=== PATIENT | female | born 1995 ===

== ENCOUNTER 2019-12-31 17:01 | Emergency (ER) | payer BC ==
[2019-12-31] MEDS: SUMAtriptan 6 MG/0.5 ML SDV SUBCUT ONE (17:35)
--- NOTE | 2019-12-31 17:35 | EDM.PDOC ---
ED HPI GENERAL MEDICAL PROBLEM - General Chief Complaint: Headache Stated Complaint: migraine Time Seen by Provider: 12/31/19 17:20 Source of Information: Reports: Patient History Limitations: Reports: No Limitations - History of Present Illness INITIAL COMMENTS - FREE TEXT/NARRATIVE: She presents to the emergency department complaining of a severe headache. The headache started yesterday around noon. Headache localizes to the right side. Constant severe pain. Positive phono and photophobia. Positive nausea but no vomiting. She did have some mild visual aura initially no injury that she is aware of. She states that she gets headaches about every 3 weeks. Usually they will resolve with Excedrin, but she has taken it 5 or 6 times since the headache started without improvement. She denies any other recent illness. No fever or chills. No nasal congestion or sore throat. No cough or shortness of breath. No chest pain or tightness. No abdominal pain. Right Headache Pain Score (Numeric/FACES): 8 - Related Data Allergies Allergy/AdvReac Type Severity Reaction Status Date / Time No Known Allergies Allergy Verified 12/31/19 17:02 Home Meds: Home Meds Acetaminophen/Caffeine [Excedrin Tension Headache Cplt] 1 tab PO Q6HR PRN [History] Social & Family History - Tobacco Use Smoking Status *Q: Never Smoker Second Hand Smoke Exposure: No - Caffeine Use Caffeine Use: Reports: Coffee, Soda Other Caffeine Use: daily - Recreational Drug Use Recreational Drug Use: No ED ROS GENERAL - Review of Systems Review Of Systems: See Below Constitutional: Denies: Fever, Chills HEENT: Denies: Ear Pain, Eye Pain, Hearing Loss, Nosebleed, Sinus Problem, Throat Pain Respiratory: Denies: Shortness of Breath, Cough Cardiovascular: Denies: Chest Pain, Lightheadedness, Palpitations Endocrine: Denies: Fatigue GI/Abdominal: Reports: Nausea. Denies: Abdominal Pain, Constipation, Diarrhea, Vomiting : Denies: Dysuria, Frequency, Urgency Musculoskeletal: Denies: Neck Pain Skin: Denies: Rash Neurological: Reports: Headache. Denies: Confusion, Dizziness, Numbness, Tingling, Trouble Speaking Psychiatric: Denies: Anxiety ED EXAM, GENERAL - Physical Exam Exam: See Below Exam Limited By: No Limitations General Appearance: Alert, WD/WN, Mild Distress Eye Exam: Bilateral Eye: EOMI, Normal Inspection, PERRL Ears: Normal External Exam, Normal Canal, Hearing Grossly Normal, Normal TMs Nose: Normal Inspection, Normal Mucosa, No Blood Throat/Mouth: Normal Lips, Normal Gums, Normal Oropharynx Head: Atraumatic, Normocephalic Neck: Non-Tender. No: Lymphadenopathy (L), Lymphadenopathy (R) Respiratory/Chest: No Respiratory Distress, Lungs Clear, Normal Breath Sounds Cardiovascular: Regular Rate, Rhythm, No Murmur GI/Abdominal: Normal Bowel Sounds, Soft, Non-Tender Neurological: Alert, Oriented, CN II-XII Intact Skin Exam: Warm, Dry Course - Vital Signs Text/Narrative:: Patient was given Imitrex 6 mg subQ With complete relief of her headache. She tolerated the medication without any difficulty. Last Recorded V/S: Last Vital Signs Temp 37.4 C 12/31/19 17:04 Pulse 95 12/31/19 17:04 Resp 17 12/31/19 17:04 BP 117/80 12/31/19 17:04 Pulse Ox 98 12/31/19 17:04 Departure - Departure Time of Disposition: 17:59 Disposition: Home, Self-Care 01 Condition: Good Clinical Impression: Migraine - Discharge Information *PRESCRIPTION DRUG MONITORING PROGRAM REVIEWED*: No *COPY OF PRESCRIPTION DRUG MONITORING REPORT IN PATIENT RUMA: No Additional Instructions: Follow-up with primary provider. Consider trial of oral Imitrex for future headaches. Return to the emergency department as needed. Sepsis Event Note - Evaluation Sepsis Screening Result: No Definite Risk - Focused Exam Vital Signs: Vital Signs Temp Pulse Resp BP Pulse Ox 12/31/19 17:04 37.4 C 95 17 117/80 98 Date Exam was Performed: 12/31/19 Time Exam was Performed: 17:30 - Problem List Review Problem List Initiated/Reviewed/Updated: Yes - Assessment/Plan Plan: Discussed findings and treatment options. Follow-up with primary provider. Consider trial of oral Imitrex for future headaches. Return to the emergency department as needed.
== END 2019-12-31 18:13 | disposition home or self-care (01) ==
LOC: LL.ED 17:01
DX: G43.909 Migraine, unspecified, not intractable, without status migrainosus (principal)
CPT/HCPCS: 96372; 99283; J3030

== ENCOUNTER 2020-06-21 20:12 | Emergency (ER) | payer BC, OTHER ==
[2020-06-21] MEDS ORDERED: Famotidine 20 MG/2 ML SDV IVPUSH ONE (20:26)
[2020-06-21] MEDS ORDERED: Ticagrelor 90 MG Tab PO ONE (20:26)
[2020-06-21] MEDS ORDERED: Aspirin 81 MG Tab.Chew CHEW ONE (20:26)
[2020-06-21] MEDS ORDERED: Sodium Chloride 0.9% 10 ML Syringe FLUSH PRN (20:26)
--- NOTE | 2020-06-21 20:26 | EDM.PDOC ---
ED HPI GENERAL MEDICAL PROBLEM - General Chief Complaint: General Stated Complaint: left arm numbness and pain Time Seen by Provider: 06/21/20 20:26 Source of Information: Reports: Patient, Old Records ([facility] EMR. No paper hospital chart available.) History Limitations: Reports: No Limitations - History of Present Illness INITIAL COMMENTS - FREE TEXT/NARRATIVE: The patient drove herself to the emergency room via private automobile for evaluation of a 5/10 "ache" over her left superior chest and clavicular area with radiation to her left jaw and additional nonspecific left arm heaviness and paresthesias with symptoms starting while she was sitting down at work at about 16: 30 hours this afternoon. The patient also had some nonspecific occasional intermittent right-sided sharp chest pain over the last couple of days. The patient denies any chest pressure, heart flutter, dizziness, orthostasis, orthopnea, diaphoresis, recent decreased exercise tolerance, or any other anginal-type symptoms. No recent history of abdominal pain, heartburn, nausea, diarrhea, melena, gross hematochezia, or any food intolerance, including fatty foods, etc. with normal bowel movement at noon today. The patient also denies any recent fever, cough, wheezing, dyspnea, etc.. Onset: Today Duration: Intermittent Location: Reports: Neck, Chest, Upper Extremity, Left, Radiates to (As above). Denies: Head, Face, Abdomen, Back, Upper Extremity, Right Quality: Reports: Ache Severity: Moderate Improves with: Reports: None Worsens with: Reports: None Context: Reports: Other (As above). Denies: Sick Contact, Trauma Associated Symptoms: Reports: Chest Pain. 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 Denies: Cataract, Glaucoma, Hard of Hearing, Macular Degeneration, Otitis Media, Retinal Detachment Other HEENT History: The patient wears glasses. Cardiovascular History: Reports: None. Denies: Afib, Aneurysm, Arrhythmia, Blood Clots/VTE/DVT, CAD, Heart Murmur, High Cholesterol, Hypertension, MA, Syncope Respiratory History: Reports: None, Intubation, Previous. Denies: Asthma, Bronchitis, Recurrent, COPD, Intubation, Difficult, PE, Pneumonia, Recurrent, Pneumothorax Gastrointestinal History: Reports: GERD, Other (See Below). Denies: Bowel Obstruction, Celiac Disease, Cholelithiasis, Chronic Constipation, Chronic Diarrhea, Colon Polyp, Gastritis, Inflammatory Bowel Disease, Irritable Bowel Syndrome, Jaundice, PUD Other Gastrointestinal History: Chronic generalized nonspecific abdominal pain for several years with no work-up to this point. Genitourinary History: Reports: None. Denies: Acute Renal Failure, Chronic Renal Insuffiency, Renal Calculus, Retention, Urinary, STD, Urinary Incontinen ce, UTI, Recurrent MARINA PORTER History: Reports: . Denies: Dysfunctional Uterine Bleeding, Endometriosis, Fibroids, Spontaneous : 2 Para: 2 LMP (Approximate): Other (See Below) Other MARINA PORTER History: LMP about 2 weeks ago. Full term deliveries by x 2 secondary to first being in breech position without other complications during pregnancies or deliveries Musculoskeletal History: Reports: None. Denies: Arthritis, Back Pain, Chronic, Fracture, Gout, Neck Pain, Chronic, Osteoarthritis, RA, SLE Neurological History: Reports: Headaches, Chronic, Migraines. Denies: Cerebral Aneurysms, Concussion, Head Trauma, MS, Neuropathy, Peripheral, Parkinson's, Seizure, TIA Psychiatric History: Reports: Anxiety, Depression. Denies: Abuse, Victim of, ADD, ADHD, Addiction, Psych Hospitalization(s), PTSD, Suicide Attempt, Suicidal Ideation Endocrine/Metabolic History: Reports: None. Denies: Diabetes, Gestational, Diabetes, Type I, Diabetes, Type II, Diabetes Mellitus, Type 3c, Hypothyroidism, IDDM Hematologic History: Reports: None. Denies: Anemia, Blood Transfusion(s), Iron Deficiency Immunologic History: Reports: None. Denies: AIDS, HIV, SLE Oncologic (Cancer) History: Reports: None Dermatologic History: Denies: Eczema, Psoriasis - Past Surgical History Head Surgeries/Procedures: Reports: None HEENT Surgical History: Reports: None. Denies: Adenoidectomy, Eye Surgery, Laser Surgery, LASIK, Myringotomy w Tube(s), Naso-Sinus Surgery, Tonsillectomy Cardiovascular Surgical History: Reports: None. Denies: Varicose Respiratory Surgical History: Reports: None. Denies: Thoracentesis GI Surgical History: Reports: None. Denies: Appendectomy, Cholecystectomy, Colonoscopy, EGD, Hernia, Abdominal, Hernia, Inguinal, Hernia Repair/Other Female Surgical History: Reports: Section. Denies: Tubal Ligation Endocrine Surgical History: Reports: None Neurological Surgical History: Reports: None. Denies: C-Spine, Discectomy, Laminectomy, Lumbar Spine, Sacral Spine, Thoracic Spine, Vertebroplasty Musculoskeletal Surgical History: Reports: None. Denies: Arthroscopic Procedure, Carpal Tunnel, Ganglion Cyst, Joint Replacement, ORIF, Shoulder Surgery Oncologic Surgical History: Reports: None Dermatological Surgical History: Reports: None - Past Imaging History Past Imaging History: Reports: CAT Scan (Negative CT of the head on 01/12/2020.) Social & Family History - Tobacco Use Smoking Status *Q: Never Smoker Tobacco Use Within Last Twelve Months: No Used Tobacco, but Quit: No Smoking Cessation Information Provided To Patient: No Second Hand Smoke Exposure: Yes Source of Second Hand Smoke Exposure: Significant other chews tobacco. Second Hand Smoke Education Provided: Yes - Caffeine Use Caffeine Use: Reports: Coffee, Soda Other Caffeine Use: daily - Alcohol Use Alcohol Use History: Yes Days Per Week of Alcohol Use: 0 Number of Drinks Per Day: 4 Number of Drinks Per Day Comment: Usually mixed drinks, wine, or beer about every 2 weeks. 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 ED EXAM, GENERAL - Physical Exam Exam: See Below Exam Limited By: No Limitations General Appearance: Alert, WD/WN, No Apparent Distress, Anxious (Mild to moderate) Head: Atraumatic, Normocephalic. No: Facial Swelling, Facial Tenderness, Sinus Tenderness Neck: Normal Inspection, Supple, Non-Tender, Full Range of Motion. No: Lymphadenopathy (L), Lymphadenopathy (R), Thyromegaly Respiratory/Chest: No Respiratory Distress, Lungs Clear, Normal Breath Sounds, No Accessory Muscle Use, Chest Non-Tender. No: Pleural Rub, Retractions Cardiovascular: Normal Peripheral Pulses, Regular Rate, Rhythm, No Edema, No Gallop, No JVD, No Murmur, No Rub. No: Gallop/S3, Gallop/S4, Friction Rub Peripheral Pulses: 2+: Radial (L), Radial (R) GI/Abdominal: Normal Bowel Sounds, Soft, Non-Tender, No Organomegaly, No Distention, No Abnormal Bruit, No Mass. No: Guarding, Tender (Female) Exam: Deferred Rectal (Female) Exam: Deferred Back Exam: Normal Inspection, Full Range of Motion. No: CVA Tenderness (L), CVA Tenderness (R), Muscle Spasm Extremities: Normal Inspection, Normal Range of Motion, Non-Tender, No Pedal Edema, Normal Capillary Refill. No: Yesi's Sign Neurological: Alert, Oriented, CN II-XII Intact, Normal Cognition, Normal Gait, No Motor/Sensory Deficits Psychiatric: Anxious (Mild to moderate), Depressed Mood (Borderline) Skin Exam: Warm, Dry, Intact, Normal Color, No Rash. No: Diaphoretic, Ecchymosis, Petechiae, Wound/Incision Lymphatic: No Adenopathy EKG INTERPRETATION EKG Date: 06/21/20 Time: 20:38 Rhythm: NSR Rate (Beats/Min): 77 [place]: Normal (Neutral cardiac axis) P-Wave: Present QRS: Normal (0.09 seconds with T wave inversion in lead V1) ST-T: Normal QT: Normal [place]/PQ Interval: 0.14 seconds representing a short [place] interval with no delta waves noted. Pulmonary hypertension by EKG Comparison: NA - No Prior EKG EKG Interpretation Comments: 1. No acute ischemic changes 2. Pulmonary hypertension by EKG 3. Short [place] interval Course - Vital Signs Last Recorded V/S: Last Vital Signs Temp 36.8 C 06/21/20 20:46 Pulse 71 06/21/20 20:46 Resp 18 06/21/20 20:46 BP 123/78 06/21/20 20:46 Pulse Ox 97 06/21/20 20:46 Vital Signs - 24 hr 06/21/20 06/21/20 06/21/20 20:26 20:27 20:34 Temperature [ 37.0 C 37.0 C Temporal] Pulse, 71 75 Peripheral [ Left Pulse Oximetry] Respiratory 16 16 Rate Blood Pressure 105/66 97/55 L [Left Upper Arm ] O2 Sat by Pulse 100 100 Oximetry O2 Sat by Pulse 100 Oximetry [Room Air] 06/21/20 20:46 Temperature [ 36.8 C Temporal] Pulse, 71 Peripheral [ Left Pulse Oximetry] Respiratory 18 Rate Blood Pressure 123/78 [Left Upper Arm ] O2 Sat by Pulse 97 Oximetry O2 Sat by Pulse Oximetry [Room Air] - Orders/Labs/Meds Orders: Active Orders 24 hr Category Date Time Status Chest 1V Frontal [CR] Stat Exams 06/21/20 20:26 Taken Obtain Past Medical Record [OM.PC] Urgent Oth 06/21/20 20:26 Active Peripheral IV Insertion Adult [OM.PC] Stat Oth 06/21/20 20:26 Ordered Resuscitation Status Stat Resus Stat 06/21/20 20:26 Ordered Labs: Laboratory Tests 06/21/20 06/21/20 06/21/20 Range/Units 20:33 20:33 20:33 WBC 7.7 (4.0-10.2) K/uL RBC 4.45 (3.77-5.09) M/uL Hgb 13.4 (11.7-15.5) g/dL Hct 39.4 (34.0-46.0) % MCV 88.5 (84.0-98.0) fL MCH 30.1 (28.2-33.3) pg MCHC 34.0 (31.7-36.0) g/dL RDW 12.4 (11.2-14.1) % Plt Count 265 (150-350) K/uL Neut % (Auto) 51.4 (45.0-80.0) % Lymph % (Auto) 40.7 (10.0-50.0) % [place] % (Auto) 6.8 (2.0-14.0) % Eos % (Auto) 0.7 (0.0-5.0) % Baso % (Auto) 0.4 (0.0-2.0) % Neut # (Auto) 3.94 (1.40-7.00) K/uL Lymph # (Auto) 3.11 (0.50-3.50) K/uL [place] # (Auto) 0.52 (0.00-1.00) K/uL Eos # (Auto) 0.05 (0.00-0.50) K/uL Baso # (Auto) 0.03 (0.00-0.20) K/uL PT 9.9 (9.5-12.0) SEC INR 1.0 APTT 25.0 (24.5-32.8) SEC D-Dimer, Quantitative 209 (0-400) ng/mL Sodium (136-145) mmol/L Potassium (3.5-5.1) mmol/L Chloride (98-107) mmol/L Carbon Dioxide (21.0-32.0) mmol/L BUN (7-18) mg/dL Creatinine (0.51-1.17) mg/dL Est Cr Clr Drug Dosing mL/min Estimated GFR (MDRD) mL/min Glucose (74-106) mg/dL Lactic Acid (0.4-2.0) mmol/L Uric Acid (2.6-7.2) mg/dL Calcium (8.5-10.1) mg/dL Magnesium (1.8-2.4) mg/dL Total Bilirubin (0.2-1.0) mg/dL AST (15-37) U/L ALT (12-78) U/L Alkaline Phosphatase (46-116) IU/L Creatine Kinase (26-308) U/L Creatine Kinase Index (0.0-2.5) % CK-MB (CK-2) (0.00-3.60) ng/mL Troponin I (0.000-0.056) ng/mL NT-Pro-B Natriuret Pep (0-125) pg/mL Total Protein (6.4-8.2) g/dL Albumin (3.4-5.0) g/dL TSH, Ultra Sensitive (0.358-3.740) mIU/mL HCG, Qual (NEGATIVE) 06/21/20 06/21/20 06/21/20 Range/Units 20:33 20:33 20:33 WBC (4.0-10.2) K/uL RBC (3.77-5.09) M/uL Hgb (11.7-15.5) g/dL Hct (34.0-46.0) % MCV (84.0-98.0) fL MCH (28.2-33.3) pg MCHC (31.7-36.0) g/dL RDW (11.2-14.1) % Plt Count (150-350) K/uL Neut % (Auto) (45.0-80.0) % Lymph % (Auto) (10.0-50.0) % [place] % (Auto) (2.0-14.0) % Eos % (Auto) (0.0-5.0) % Baso % (Auto) (0.0-2.0) % Neut # (Auto) (1.40-7.00) K/uL Lymph # (Auto) (0.50-3.50) K/uL [place] # (Auto) (0.00-1.00) K/uL Eos # (Auto) (0.00-0.50) K/uL Baso # (Auto) (0.00-0.20) K/uL PT (9.5-12.0) SEC INR APTT (24.5-32.8) SEC D-Dimer, Quantitative (0-400) ng/mL Sodium 135 L (136-145) mmol/L Potassium 3.5 (3.5-5.1) mmol/L Chloride 101 (98-107) mmol/L Carbon Dioxide 24.7 (21.0-32.0) mmol/L BUN 16 (7-18) mg/dL Creatinine 0.99 (0.51-1.17) mg/dL Est Cr Clr Drug Dosing 77.49 mL/min Estimated GFR (MDRD) > 60 mL/min Glucose 89 (74-106) mg/dL Lactic Acid 0.5 (0.4-2.0) mmol/L Uric Acid 3.4 (2.6-7.2) mg/dL Calcium 8.8 (8.5-10.1) mg/dL Magnesium 2.0 (1.8-2.4) mg/dL Total Bilirubin 0.3 (0.2-1.0) mg/dL AST 15 (15-37) U/L ALT 31 (12-78) U/L Alkaline Phosphatase 68 (46-116) IU/L Creatine Kinase 62 (26-308) U/L Creatine Kinase Index 1.6 (0.0-2.5) % CK-MB (CK-2) 1.00 (0.00-3.60) ng/mL Troponin I 0.000 (0.000-0.056) ng/mL NT-Pro-B Natriuret Pep 58 (0-125) pg/mL Total Protein 7.8 (6.4-8.2) g/dL Albumin 4.2 (3.4-5.0) g/dL TSH, Ultra Sensitive 3.700 (0.358-3.740) mIU/mL HCG, Qual Negative (NEGATIVE) Meds: Medications Discontinued Medications Generic Name Dose Route Start Last Admin Trade Name Freq PRN Reason Stop Dose Admin Aspirin 324 mg 06/21/20 20:26 06/21/20 21:06 Aspirin CHEW 06/21/20 20:27 324 mg ONETIME ONE Administration Famotidine 40 mg 06/21/20 20:26 06/21/20 21:06 Pepcid IVPUSH 06/21/20 20:27 40 mg ONETIME ONE Administration Sodium Chloride 10 ml 06/21/20 20:26 Saline Flush FLUSH ASDIRECTED PRN Keep Vein Open Ticagrelor 180 mg 06/21/20 20:26 06/21/20 21:06 Brilinta PO 06/21/20 20:27 180 mg ONETIME ONE Administration - Radiology Interpretation Free Text/Narrative:: cafeteria monitor shows normal sinus rhythm with heart rate in the 70s with no ectopy or arrhythmia Chest x-ray, portable, shows no evidence of cardiomegaly, CHF, pneumothorax, pulmonary infiltrates, etc. Mild right middle lobe atelectasis was present. Departure - Departure Time of Disposition: 21:40 Disposition: Home, Self-Care 01 Condition: Good Clinical Impression: Tobacco abuse counseling, Mixed anxiety depressive disorder, Hyponatremia, Shortened [place] interval Chest pain Qualifiers: Chest pain type: other chest pain Qualified Code(s): R07.89 - Other chest pain - Discharge Information *PRESCRIPTION DRUG MONITORING PROGRAM REVIEWED*: Not Applicable *COPY OF PRESCRIPTION DRUG MONITORING REPORT IN PATIENT RUMA: Not Applicable Instructions: Chest Wall Pain, [id number], Nonspecific Chest Pain, Adult, [id number], Smokeless Tobacco Information, Adult Referrals: Zoë Jones PA [Primary Care Provider] - Forms: ED Department Discharge Additional Instructions: 1. Follow up with your regular provider in 10-14 days as needed, if symptoms persist. Bring these discharge instructions with you to that visit.. 2. Tylenol 650 mg by mouth every 4 hours and/or OTC ibuprofen 2-3 tabs by mouth every 6 hours with food as directed./needed. You may stagger these medications for 48-72 hours only, which essentially means that you are receiving a pain medication about every 2 hours. 3. Stop all tobacco use STEVEN as directed/per provided information and consider contacting [facility]uit [facility], etc.. 4. Immediately after this visit verify that your cellular telephone's voicemail has been activated and is empty. Also verify that your home telephone's answering machine is operating properly and has space to receive messages. Note that it is sometimes necessary for us to be able to contact you at a later date to discuss your medical care. 5. Please remember that we are ALWAYS here for you and want to answer any questions you may have. Feel free to call the hospital any time and we call you back STEVEN. Sepsis Event Note (ED) - Focused Exam Vital Signs: Vital Signs Temp Pulse Resp BP Pulse Ox Pulse Ox 06/21/20 20:46 36.8 C 71 18 123/78 97 06/21/20 20:34 37.0 C 75 16 97/55 L 100 06/21/20 20:27 37.0 C 71 16 105/66 100 06/21/20 20:26 100 - Problem List & Annotations (1) Chest pain SNOMED Code(s): 12891052 Code(s): R07.9 - CHEST PAIN, UNSPECIFIED Status: Acute Priority: High Onset Date: ~06/21/20 Annotation/Comment:: Atypical chest pain with no true anginal type symptoms, however chest pain protocol was initiated in the emergency room. No true indication for rule out MA at this time with patient given chest pain precautions, including chest wall pain, etc. Consider further cardiac work-up depending on her clinical course. She does not need a work excuse by her history. Note some anxiety component. Qualifiers: Chest pain type: other chest pain Qualified Code(s): R07.89 - Other chest pain; R07.8 - Other chest pain (2) Hyponatremia SNOMED Code(s): 00632773 Code(s): E87.1 - HYPO-OSMOLALITY AND HYPONATREMIA Status: Acute Priority: Medium Onset Date: 06/21/20 Annotation/Comment:: Observe for now. No CHF. (3) Mixed anxiety depressive disorder SNOMED Code(s): 554716806 Code(s): F41.8 - OTHER SPECIFIED ANXIETY DISORDERS Status: Chronic Priority: Medium Annotation/Comment:: The patient stopped her antidepressant medications about 8 months ago after her last . She does agree to discuss this once again with her regular provider and possibly change to a different medication with some mild medication intolerance from the previous medication given at the lowest dose by her history. Emotional support was provided. (4) Shortened [place] interval SNOMED Code(s): 40332876 Code(s): R94.31 - ABNORMAL ELECTROCARDIOGRAM [ECG] [EKG] Status: Acute Priority: Medium Onset Date: 06/21/20 Annotation/Comment:: No delta waves noted. Observe for now. (5) Tobacco abuse counseling SNOMED Code(s): 558065772, 473873029, [id number] Code(s): Z71.6 - TOBACCO ABUSE COUNSELING Status: Chronic Priority: Medium Annotation/Comment:: The patient was provided chewing tobacco cessation information for her significant other. - Problem List Review Problem List Initiated/Reviewed/Updated: Yes - My Orders Last 24 Hours: My Active Orders 06/21/20 20:26 Chest 1V Frontal [CR] Stat Obtain Past Medical Record [OM.PC] Urgent Peripheral IV Insertion Adult [OM.PC] Stat Resuscitation Status Stat - Assessment/Plan Last 24 Hours: My Active Orders 06/21/20 20:26 Chest 1V Frontal [CR] Stat Obtain Past Medical Record [OM.PC] Urgent Peripheral IV Insertion Adult [OM.PC] Stat Resuscitation Status Stat Assessment:: As above Plan: As above. Extensive precautions were given to the patient, who is in agreement with the treatment plan. See Patient Instructions for further treatment and plan.
[2020-06-21 21:00] LABS: CHLORIDE,CL 101 mmol/L (98-107); SODIUM,NA 135 mmol/L (136-145)
== END 2020-06-21 21:40 | disposition home or self-care (01) ==
LOC: LL.ED 20:12
DX: F41.8 Other specified anxiety disorders (principal); E87.1 Hypo-osmolality and hyponatremia; Z71.6 Tobacco abuse counseling; R20.2 Paresthesia of skin; J98.11 Atelectasis; R94.31 Abnormal electrocardiogram [ECG] [EKG]; Z77.22 Contact with and (suspected) exposure to environmental tobacco smoke (acute) (chronic)
CPT/HCPCS: 36415; 71045; 80053; 82550; 82553; 83605; 83735; 83880; 84443; 84484; 84550; 84703; 85025; 85379; 85610; 85730; 93005; 96374; 99285; A9270; J3490

== ENCOUNTER 2022-10-12 20:10 | Emergency (ER) | payer BC, SELFPAY ==
[2022-10-12 21:07] LABS: ANION GAP 8.2 meq/L (7-15); CHLORIDE,CL 101 mmol/L (98-107); SODIUM,NA 137 mmol/L (136-145)
[2022-10-12 21:09] LABS: ESTIMATED GFR 125 mL/min (>=60)
[2022-10-12] MEDS ORDERED: Ketorolac 30 MG/ML SDV IM ONE (21:35)
[2022-10-12] MEDS ORDERED: traMADol 50 MG Tab PO ONE (21:35)
== END 2022-10-12 22:10 | disposition home or self-care (01) ==
LOC: LL.ED 20:10
DX: O99.893 Other specified diseases and conditions complicating puerperium (principal); R10.31 Right lower quadrant pain; R10.32 Left lower quadrant pain
CPT/HCPCS: 36415; 74019; 80053; 81001; 83605; 85025; 87086; 96372; 99283; 99284; A9270-GY; J1885